=== PATIENT | male | born 1975 | race African-American/Black ===

== ENCOUNTER 2021-02-15 16:32 | Emergency (ER) | payer MEDICAID ==
[~2021-02-15] VITALS: Ht 165.1 cm; Wt 89.0 kg
[2021-02-15 16:52] VITALS: BP 117/84
[2021-02-15] MEDS ORDERED: LISI10TA26 MT (17:41)
[2021-02-15] MEDS ORDERED: ATOR40TA70 MT (17:41)
== END 2021-02-15 17:47 | disposition home or self-care (01) ==
LOC: ER 16:32
DX: Z76.0 Encounter for issue of repeat prescription (principal); I10 Essential (primary) hypertension; E78.5 Hyperlipidemia, unspecified
CPT/HCPCS: 99283

== ENCOUNTER 2022-02-26 17:32 | Emergency (ER) | payer MEDICAID ==
[~2022-02-26] VITALS: Ht 170.2 cm; Wt 83.0 kg
[~2022-02-26 17:32] MED LIST: ATOR40TA70 MT; LISI10TA26 MT
[2022-02-26] MEDS ORDERED: CARB15DR63 EACH EAR (20:26)
[2022-02-26] MEDS ORDERED: CARBAMIDE PEROXIDE 6.5% OTIC SOLN 15ML LEFT EAR ONE (20:30)
[2022-02-26 21:00] VITALS: BP 114/78
== END 2022-02-26 21:27 | disposition home or self-care (01) ==
LOC: ER 17:32
DX: H61.22 Impacted cerumen, left ear (principal); I10 Essential (primary) hypertension; E78.00 Pure hypercholesterolemia, unspecified
CPT/HCPCS: 99282